=== PATIENT | male | born 1945 | race Caucasian/White ===

== ENCOUNTER 2021-02-09 23:09 | Inpatient (IN) | payer OTHER, SELFPAY ==
[~2021-02-09] VITALS: Ht 167.6 cm; Wt 73.9 kg
[2021-02-09 23:09] VITALS: BP_SYST 150
[~2021-02-09 23:09] MED LIST: ACET-2634 PO; APIX5TAB4 PO; CARV6.2554 PO; DIVA250T PO; DONE10TA44 PO; FENO160 PO; FER300L PO; FLOR.1 PO; FURO10VI27 IVP; GABA-529 PO; HYDR-4038 PO; LIP40 PO; LORA-258 PO; MEMA28CA PO; MULT-1089 PO; ONDA4TAB5 PO; PRO40 PO; SERT50TA PO
[2021-02-09 23:44] LABS: BASOPHILS # (AUTO) 0.1 K/uL (0.0-0.2); BASOPHILS % (AUTO) 0.9 % (0.0-2.0); EOSINOPHILS # (AUTO) 0.1 K/uL (0.0-0.4); EOSINOPHILS % (AUTO) 1.4 % (0.0-4.0); HEMATOCRIT 34.7 % (36-54); HEMOGLOBIN 11.1 g/dL (14.0-18.0); LYMPHOCYTES # (AUTO) 2.2 K/uL (1.0-5.5); LYMPHOCYTES % (AUTO) 32.8 % (20.5-51.5); MEAN CORPUSCULAR HEMOGLOBIN 30 pg (27-31); MEAN CORPUSCULAR HGB CONC 32 % (32-36); MEAN CORPUSCULAR VOLUME 93 fL (79.0-98.0); MONOCYTES # (AUTO) 0.7 K/uL (0.0-1.0); MONOCYTES % (AUTO) 10.1 % (1.7-9.3); NEUTROPHILS # (AUTO) 3.7 K/uL (1.8-7.7); NEUTROPHILS % (AUTO) 54.8 % (40.0-70.0); PLATELET COUNT (AUTO) 417 K/uL (130-430); RED BLOOD CELL COUNT(AUTO) 3.74 MIL/uL (4.2-6.2); RED CELL DISTRIBUTION WIDTH 18.8 % (9.0-15.0); WHITE BLOOD COUNT (AUTO) 6.8 K/uL (4.8-10.8)
[2021-02-09] MEDS ORDERED: ASPIRIN 81 MG TAB.CHEW PO ONE (23:45)
[2021-02-10] LABS: ANION GAP 8 (5-15); CHLORIDE 111 mmol/L (98-107); POTASSIUM 3.3 mmol/L (3.5-5.1); SODIUM SERUM 146 mmol/L (136-145)
[2021-02-10 00:13] LABS: ALANINE AMINOTRANSFERASE 19 U/L (12-78); ASPARTATE AMINOTRANSFERASE 16 U/L (10-37); CREATININE 1.29 mg/dL (0.55-1.30); GLUCOSE 216 mg/dL (70-99); TOTAL BILIRUBIN 0.2 mg/dL (0.0-1.0); UREA NITROGEN, BLOOD 23 mg/dL (8-21)
[2021-02-10 00:14] LABS: ALBUMIN 3.1 g/dL (3.4-4.8)
[2021-02-10] MEDS ORDERED: ASPIRIN 81 MG TAB.CHEW ONE (00:51)
[2021-02-10] MEDS ORDERED: ACETAMINOPHEN 500 MG TABLET PO ONE (02:45)
[2021-02-10 03:38] VITALS: BP_SYST 130
[2021-02-10] MEDS ORDERED: SERT-131 PO (05:50)
[2021-02-10] MEDS ORDERED: CARV3.1246 PO (05:50)
[2021-02-10] MEDS ORDERED: EMPA10TA PO (05:50)
[2021-02-10] MEDS ORDERED: VITD2000 PO (05:50)
[2021-02-10] MEDS ORDERED: ACETAMINOPHEN 500 MG TABLET PO PRN (06:30)
[2021-02-10] MEDS ORDERED: HYDROcodone/ACETAMIN 10-325 MG TAB PO PRN (06:30)
[2021-02-10] MEDS ORDERED: LORazepam 2 MG/ML VIAL IVP PRN (06:30)
[2021-02-10] MEDS ORDERED: ONDANSETRON 4 MG ODT TAB PO PRN (06:30)
[2021-02-10] MEDS ORDERED: HYDROcodone/ACETAMIN 5-325 MG TAB (NORCO/ VICODIN) PO PRN (06:30)
[2021-02-10] MEDS ORDERED: ACETAMINOPHEN 325 MG TABLET PO PRN ×2 (06:30→07:00)
[2021-02-10] MEDS ORDERED: LORazepam 1 MG TABLET PO PRN (06:30)
[2021-02-10] MEDS ORDERED: ONDANSETRON HCL 4 MG/2 ML VIAL IVP PRN (06:30)
[2021-02-10] MEDS ORDERED: NALOXONE HCL 0.4 MG/ML AMP (NARCAN) IVP PRN ×2 (06:30)
[2021-02-10] MEDS ORDERED: D5W 1,000 ML IV PRN (07:15)
[2021-02-10] MEDS ORDERED: GLUCOSE (DEXTROSE) ORAL GEL -Adults PO PRN (07:15)
[2021-02-10] MEDS ORDERED: DIVA-72 PO (07:15)
[2021-02-10] MEDS ORDERED: DEXTROSE 50%-WATER 50 ML DISP.SYRIN IVP PRN (07:15)
[2021-02-10 08:00] VITALS: BP_SYST 135
[2021-02-10 08:04] LABS: BASOPHILS % (AUTO) 0.7 % (0.0-2.0); EOSINOPHILS # (AUTO) 0.1 K/uL (0.0-0.4); EOSINOPHILS % (AUTO) 1.9 % (0.0-4.0); HEMATOCRIT 32.1 % (36-54); HEMOGLOBIN 10.5 g/dL (14.0-18.0); LYMPHOCYTES # (AUTO) 1.8 K/uL (1.0-5.5); LYMPHOCYTES % (AUTO) 27.4 % (20.5-51.5); MEAN CORPUSCULAR HEMOGLOBIN 30 pg (27-31); MEAN CORPUSCULAR HGB CONC 33 % (32-36); MEAN CORPUSCULAR VOLUME 93 fL (79.0-98.0); MONOCYTES # (AUTO) 0.7 K/uL (0.0-1.0); MONOCYTES % (AUTO) 9.9 % (1.7-9.3); NEUTROPHILS % (AUTO) 60.1 % (40.0-70.0); PLATELET COUNT (AUTO) 350 K/uL (130-430); RED BLOOD CELL COUNT(AUTO) 3.45 MIL/uL (4.2-6.2); RED CELL DISTRIBUTION WIDTH 19.2 % (9.0-15.0); WHITE BLOOD COUNT (AUTO) 6.7 K/uL (4.8-10.8)
[2021-02-10] MEDS: MULTIVITAMINS TAB 1 TABLET PO SCH (09:00)
[2021-02-10] MEDS ORDERED: NON-FORMULARY MEDICATION (Empagliflozin (Jardiance) 10 MG) PO SCH (09:00)
[2021-02-10] MEDS: FENOFIBRATE NANOCRYSTALLIZED 48 MG TABLET (TRICOR) PO SCH (09:01)
[2021-02-10] MEDS: PANTOPRAZOLE SODIUM 40 MG TAB PO SCH (09:01)
[2021-02-10] MEDS: CARVEDILOL 3.125 MG TABLET (COREG) PO SCH ×2 (09:02→21:01)
[2021-02-10] MEDS: SERTRALINE HCL 50 MG TABLET PO SCH (09:03)
[2021-02-10] MEDS: APIXABAN 2.5 MG TABLET PO SCH ×2 (09:03→21:02)
[2021-02-10] MEDS: DIVALPROEX SODIUM 250 MG TABLET(DEPAKOTE) PO SCH ×2 (09:11→21:01)
[2021-02-10] MEDS ORDERED: MEMANTINE HCL 5 MG TABLET PO ONE (09:30)
[2021-02-10] MEDS: INSULIN REGULAR, HUMAN 100 UNITS/ML, 10 ML VIAL (humuLIN R) SUBCUT PRN ×2 (11:17→21:18)
[2021-02-10 11:20] VITALS: BP_SYST 143
[2021-02-10 11:27] LABS: ANION GAP 12 (5-15); CHLORIDE 106 mmol/L (98-107); GLUCOSE 257 mg/dL (70-99); POTASSIUM 3.4 mmol/L (3.5-5.1); SODIUM SERUM 141 mmol/L (136-145)
[2021-02-10 11:28] LABS: ALANINE AMINOTRANSFERASE 17 U/L (12-78); ALBUMIN 2.9 g/dL (3.4-4.8); ASPARTATE AMINOTRANSFERASE 19 U/L (10-37); CALCIUM 7.9 mg/dL (8.4-11.0); CREATININE 1.26 mg/dL (0.55-1.30); PHOSPHORUS 3.8 mg/dL (2.7-4.5); TOTAL BILIRUBIN 0.3 mg/dL (0.0-1.0); UREA NITROGEN, BLOOD 20 mg/dL (8-21)
[2021-02-10] MEDS: hydrALAZINE HCL 25 MG TABLET PO SCH ×2 (15:12→21:14)
[2021-02-10] MEDS: NORMAL SALINE 5 ML DISP.SYRIN IVF SCH ×2 (15:13→21:03)
[2021-02-10 15:16] VITALS: BP_SYST 147
[2021-02-10 16:08] VITALS: BP_SYST 147
[2021-02-10 20:00] VITALS: BP_SYST 133
[2021-02-10] MEDS: MEMANTINE HCL 5 MG TABLET PO SCH (21:00)
[2021-02-10] MEDS ORDERED: DONEPEZIL HCL 5 MG TABLET (ARICEPT) PO SCH (21:00)
[2021-02-10] MEDS ORDERED: ATORVASTATIN 20 MG TABLET PO SCH (21:00)
[2021-02-10] MEDS ORDERED: DIVALPROEX SODIUM 250 MG TABLET(DEPAKOTE) PO SCH (21:00)
[2021-02-11 00:29] VITALS: BP_SYST 130
[2021-02-11] MEDS: NORMAL SALINE 5 ML DISP.SYRIN IVF SCH ×2 (06:11→15:46)
[2021-02-11] MEDS: hydrALAZINE HCL 25 MG TABLET PO SCH ×2 (06:16→15:45)
[2021-02-11 06:53] LABS: BASOPHILS # (AUTO) 0.1 K/uL (0.0-0.2); BASOPHILS % (AUTO) 0.7 % (0.0-2.0); EOSINOPHILS # (AUTO) 0.1 K/uL (0.0-0.4); EOSINOPHILS % (AUTO) 1.3 % (0.0-4.0); HEMATOCRIT 29.9 % (36-54); HEMOGLOBIN 9.8 g/dL (14.0-18.0); LYMPHOCYTES # (AUTO) 2.2 K/uL (1.0-5.5); LYMPHOCYTES % (AUTO) 26.1 % (20.5-51.5); MEAN CORPUSCULAR HEMOGLOBIN 30 pg (27-31); MEAN CORPUSCULAR HGB CONC 33 % (32-36); MEAN CORPUSCULAR VOLUME 92 fL (79.0-98.0); MONOCYTES # (AUTO) 0.7 K/uL (0.0-1.0); MONOCYTES % (AUTO) 7.7 % (1.7-9.3); NEUTROPHILS # (AUTO) 5.5 K/uL (1.8-7.7); NEUTROPHILS % (AUTO) 64.2 % (40.0-70.0); PLATELET COUNT (AUTO) 346 K/uL (130-430); RED BLOOD CELL COUNT(AUTO) 3.25 MIL/uL (4.2-6.2); RED CELL DISTRIBUTION WIDTH 18.8 % (9.0-15.0); WHITE BLOOD COUNT (AUTO) 8.5 K/uL (4.8-10.8)
[2021-02-11 08:00] VITALS: BP_SYST 137
[2021-02-11 08:04] LABS: ANION GAP 10 (5-15); CALCIUM 8.7 mg/dL (8.4-11.0); CHLORIDE 108 mmol/L (98-107); CREATININE 1.21 mg/dL (0.55-1.30); GLUCOSE 138 mg/dL (70-99); POTASSIUM 3.6 mmol/L (3.5-5.1); SODIUM SERUM 144 mmol/L (136-145); UREA NITROGEN, BLOOD 26 mg/dL (8-21)
[2021-02-11] MEDS: MULTIVITAMINS TAB 1 TABLET PO SCH (09:20)
[2021-02-11] MEDS: MEMANTINE HCL 5 MG TABLET PO SCH (09:20)
[2021-02-11] MEDS: CARVEDILOL 3.125 MG TABLET (COREG) PO SCH (09:20)
[2021-02-11] MEDS: DIVALPROEX SODIUM 250 MG TABLET(DEPAKOTE) PO SCH (09:20)
[2021-02-11] MEDS: PANTOPRAZOLE SODIUM 40 MG TAB PO SCH (09:21)
[2021-02-11] MEDS: SERTRALINE HCL 50 MG TABLET PO SCH (09:21)
[2021-02-11] MEDS: FENOFIBRATE NANOCRYSTALLIZED 48 MG TABLET (TRICOR) PO SCH (09:22)
[2021-02-11] MEDS: APIXABAN 2.5 MG TABLET PO SCH (09:23)
[2021-02-11] MEDS ORDERED: CALCIUM CARBONATE 500 MG/ TAB.CHEW PO ONE (10:45)
[2021-02-11] MEDS ORDERED: ISOSORBIDE MONONITRATE 30 MG TAB.ER.24H PO ONE (11:00)
[2021-02-11] MEDS: NITROGLYCERIN 0.4 MG TAB.SUBL SL PRN ×2 (11:12→15:46)
[2021-02-11 12:00] VITALS: BP_SYST 130
[2021-02-11] MEDS: INSULIN REGULAR, HUMAN 100 UNITS/ML, 10 ML VIAL (humuLIN R) SUBCUT PRN ×2 (12:13→16:53)
[2021-02-11 16:00] VITALS: BP_SYST 129
[2021-02-11] MEDS ORDERED: ISOS30TA9 PO (18:57)
[2021-02-11] MEDS ORDERED: ASPI-1393 PO (18:57)
[2021-02-12] MEDS ORDERED: ISOSORBIDE MONONITRATE 30 MG TAB.ER.24H PO SCH (09:00)
[2021-02-16] MEDS ORDERED: CHOLECALCIFEROL (VITAMIN D3) 2,000 UNIT TABLET PO SCH (09:00)
== END 2021-02-11 19:28 | disposition home or self-care (01) | DRG 281 ==
LOC: SED 23:09 → STU 02-10 02:47
PROVIDERS: ADMIT Preventive Medicine Preventive Medicine/Occupational Environmental Medicine; ATTEND Preventive Medicine Preventive Medicine/Occupational Environmental Medicine
DX: I21.4 Non-ST elevation (NSTEMI) myocardial infarction (principal); E87.0 Hyperosmolality and hypernatremia; I50.22 Chronic systolic (congestive) heart failure; E87.5 Hyperkalemia; D64.9 Anemia, unspecified; E11.65 Type 2 diabetes mellitus with hyperglycemia; E11.51 Type 2 diabetes mellitus with diabetic peripheral angiopathy without gangrene; I25.10 Atherosclerotic heart disease of native coronary artery without angina pectoris; I11.0 Hypertensive heart disease with heart failure; F03.90 Unspecified dementia, unspecified severity, without behavioral disturbance, psychotic disturbance, mood disturbance, and anxiety; R79.89 Other specified abnormal findings of blood chemistry; I49.5 Sick sinus syndrome; E88.09 Other disorders of plasma-protein metabolism, not elsewhere classified; E78.5 Hyperlipidemia, unspecified; Z20.822 Contact with and (suspected) exposure to COVID-19; I34.0 Nonrheumatic mitral (valve) insufficiency; K21.9 Gastro-esophageal reflux disease without esophagitis; Z79.01 Long term (current) use of anticoagulants; Z74.01 Bed confinement status; Z89.512 Acquired absence of left leg below knee; Z95.1 Presence of aortocoronary bypass graft; Z95.0 Presence of cardiac pacemaker; Z89.612 Acquired absence of left leg above knee; Z79.899 Other long term (current) drug therapy; Z95.5 Presence of coronary angioplasty implant and graft
CPT/HCPCS: 36415; 71045; 80048; 80053; 82962; 83735; 83880; 84100; 84484; 85025; 93005; 99285; G0378; J1815